=== PATIENT | female | born 1960 | race Caucasian/White ===

== ENCOUNTER 2021-01-16 11:38 | Emergency (ER) | payer OTHER ==
[~2021-01-16] VITALS: Ht 165.1 cm; Wt 104.3 kg
[~2021-01-16 11:38] MED LIST: BLOOD PRESSURE PILL PO; CIPRO500 MG PO; EDARBYCLOR 40-1 EACH PO; FLAGYL500 MG PO; NORCO 7.5-3251 EACH PO
== END 2021-01-16 15:45 | disposition home or self-care (01) ==
LOC: ER1 11:38
DX: Z23 Encounter for immunization (principal); U07.1 COVID-19; I10 Essential (primary) hypertension; Z88.2 Allergy status to sulfonamides
CPT/HCPCS: 99284; M0243

== ENCOUNTER → 2021-05-12 | Outpatient (CLI) | payer OTHER | LOC: KOH-I 14:22 | DX: M25.561 Pain in right knee (principal); M25.562 Pain in left knee | CPT/HCPCS: 73564 ==

== ENCOUNTER → 2021-06-09 | Outpatient (CLI) | payer OTHER | LOC: EMI 07:58 | DX: S83.221D Peripheral tear of medial meniscus, current injury, right knee, subsequent encounter (principal) | CPT/HCPCS: 73721 ==

== ENCOUNTER → 2021-08-07 | Outpatient (CLI) | payer OTHER ==
[~2021-08-07] MED LIST changes: +LISINOPRIL10 MG PO; +PROAIR HFA8.5 GM INH
[2021-08-07 08:31] LABS: HEMOGLOBIN 13.1 gm/dl (12.3-15.3); RED BLOOD COUNT 4.61 M/UL (4.00-5.10); WHITE BLOOD COUNT 5.3 K/UL (4.5-11.0)
[2021-08-07 08:58] LABS: BUN/CREATININE RATIO 19 (0-10)
== END ==
LOC: OPSV2 07:51
PROVIDERS: Orthopaedic Surgery
DX: Z01.818 Encounter for other preprocedural examination (principal); R94.31 Abnormal electrocardiogram [ECG] [EKG]
CPT/HCPCS: 36415; 80048; 85025; 93005

== ENCOUNTER → 2021-08-15 | Day surgery (SDC) | payer OTHER ==
[~2021-08-15] MED LIST changes: +HYDROCODON-ACE1 EAC2 PO
== END | disposition home or self-care (01) ==
LOC: OR 06:32
DX: S83.231A Complex tear of medial meniscus, current injury, right knee, initial encounter (principal); M94.261 Chondromalacia, right knee; M67.51 Plica syndrome, right knee; M23.8X1 Other internal derangements of right knee; M23.300 Other meniscus derangements, unspecified lateral meniscus, right knee; I10 Essential (primary) hypertension; J45.909 Unspecified asthma, uncomplicated; X58.XXXA Exposure to other specified factors, initial encounter; Z90.49 Acquired absence of other specified parts of digestive tract; Z88.2 Allergy status to sulfonamides; Z88.8 Allergy status to other drugs, medicaments and biological substances
CPT/HCPCS: J0171; J0690; J1100; J2001; J2250; J2405; J2704; J3010; J7120